=== PATIENT | male | born 1965 | race Caucasian/White ===

== ENCOUNTER 2017-01-02 20:05 | Emergency (ER) | payer MEDICAID ==
[2017-01-02 21:00] VITALS: RESP 16
[2017-01-02] MEDS ORDERED: ACETAMINOPHEN 500 MG TAB ONE (21:05)
--- NOTE | 2017-01-02 22:31 | EDPHY ---
H & P Time Seen by Provider: 01/02/17 21:14 HPI/ROS: Chief complaint. High blood pressure HPI. 51-year-old male here from alcohol [facility] with elevated blood pressure. Been drinking heavily. He went to the [facility] last night. He does have a history of hypertension. He earlier was seeing some spots when his blood pressure was quite high. His history of pancreatitis and alcoholism. Denies focal weakness paresthesias. No chest discomfort or trouble breathing. ROS Constitutional. no fever/chills, no weakness Eyes. Seeing spots ENT. no sore throat, no nasal drainage Cardiovascular. no chest pain Respiratory. no shortness of breath, no cough Abdominal. no abdominal pain, no nausea/vomiting, no diarrhea . no problems urinating MS. no calf pain/swelling, no neck/back pain, no joint pain Skin. no rash Lymph. no swollen glands Neuro. no headache, no dizziness, no difficulty walking or with speech Past Medical/Surgical History: Alcoholism, hypertension, pancreatitis Social History: Single, daily smoker, no alcohol for 24 hours Smoking Status: Heavy smoker Physical Exam: General Appearance: Alert well-developed male mild distress initial blood pressure 182/118 Eyes: Pupils equal and round no pallor or injection. ENT, Mouth: Mucous membranes are moist. Respiratory: There are no retractions, lungs are clear to auscultation. Cardiovascular: Regular rate and rhythm. Gastrointestinal: Abdomen is soft and nontender, no masses, bowel sounds normal. Neurological: Awake and alert, sensory and motor exams grossly normal. Skin: Warm and dry, no rashes. Musculoskeletal: Neck is supple nontender. Extremities symmetrical, full range of motion. Psychiatric: Patient is oriented X 3, there is no agitation. Constitutional: Initial Vital Signs Temperature (C) 37.4 C 01/02/17 20:08 Heart Rate 93 01/02/17 20:08 Respiratory Rate 18 01/02/17 20:08 Blood Pressure 182/118 H 01/02/17 20:08 O2 Sat (%) 95 01/02/17 20:08 O2 Delivery Mode Room Air Allergies/Adverse Reactions: No Known Allergies Allergy (Verified 01/02/17 20:10) Home Medications: Medication Instructions Recorded Acetaminophen [Tylenol 325mg (*)] 650 mg PO Q6 PRN #0 tab 01/15/16 Folic Acid [Folic Acid 1 MG (*)] 1 mg PO DAILY #0 tab 01/15/16 Lipase/Protease/Amylase [Pancreaze 1 cap PO AC #30 cap 01/15/16 16.8] Metoprolol Succinate Xr [Toprol Xl 50 mg PO DAILY #30 tab 01/15/16 50 mg (*)] Multivitamins [Multivitamin (*)] 1 each PO DAILY #0 tab 01/15/16 Nicotine [Nicoderm Cq 21 mg (*)] 21 mg TD DAILY PRN #0 patch 01/15/16 PARoxetine HCL [Paxil 20mg (*)] 20 mg PO DAILY #0 tab 01/15/16 Pantoprazole Sodium [Protonix] 40 mg PO DAILY #20 tab 01/15/16 Sucralfate [Carafate 1gm/10ml Oral 1 gm PO ACHS #60 ml 01/15/16 Liquid (*)] Thiamine HCl [Vitamin B-1] 100 mg PO DAILY #0 tab 01/15/16 amLODIPine BESYLATE [Norvasc 10 mg 10 mg PO DAILY #30 tab 01/15/16 (*)] Medical Decision Making Procedures: Norvasc and Ativan by mouth. ED Course/Re-evaluation: Repeat blood pressure 153/104 Re-evaluation at 11:25 p.m.. Blood pressure 142/105. Patient has no symptoms. Differential Diagnosis: I considered hypertensive urgency and crisis. I also considered alcohol withdrawal as a cause of his elevated blood pressure. Patient has known high blood pressure - Data Points Medications Given: Discontinued Medications Amlodipine Besylate (Norvasc) 10 mg PO EDNOW ONE Stop: 01/02/17 22:38 Last Admin: 01/02/17 23:01 Dose: 10 mg Lorazepam (Ativan) 1 mg PO EDNOW ONE Stop: 01/02/17 22:38 Last Admin: 01/02/17 23:00 Dose: 1 mg Departure - Departure Disposition: Home, Routine, Self-Care Clinical Impression: Hypertension Qualifiers: Hypertension type: essential hypertension Qualified Code(s): I10 - Essential ( primary) hypertension Condition: Good Instructions: Hypertension (ED) Additional Instructions: Continue regular medications as prescribed. Return for worsening symptoms. Re- evaluation by your regular physician in the next week for blood pressure evaluation possible change of medication Referrals: NONE *PRIMARY CARE P,. [Primary Care Provider] - As per Instructions
[2017-01-02] MEDS ORDERED: LORazepam 1 MG TAB PO ONE (22:37)
[2017-01-02] MEDS ORDERED: amLODIPine BESYLATE 5 MG TAB ONE (23:00)
[2017-01-02 23:29] VITALS: BP 143/103; PULSE 75; TEMP 98.1; O2SAT 97
== END 2017-01-02 23:36 | disposition home or self-care (01) ==
DX: I10 Essential (primary) hypertension (principal); F17.200 Nicotine dependence, unspecified, uncomplicated

== ENCOUNTER 2017-07-23 19:50 | Emergency (ER) | payer MEDICAID ==
[2017-07-23 19:54] VITALS: RESP 18
--- NOTE | 2017-07-23 20:08 | EDPHY ---
H & P Time Seen by Provider: 07/23/17 19:50 HPI/ROS: CHIEF COMPLAINT: Fall, back pain HISTORY OF PRESENT ILLNESS: Patient is a 52-year-old male with a history of alcohol abuse who presents emergency department after having a slip and fall on the ice. He fell backwards striking the back of his head and back on the ground. He complains of mild headache. He has back pain from his cervical spine through his lumbar spine. It is worse with movement. He denies any weakness or numbness. Patient is unsure if he lost consciousness during this fall. No nausea or vomiting. No visual change. REVIEW OF SYSTEMS: My complete review of systems is negative except as mentioned in the HPI. Past Medical/Surgical History: Includes alcohol abuse Smoking Status: Heavy smoker Physical Exam: Vitals noted GENERAL: Well-appearing, in no acute distress, alert. HEAD: No evidence of trauma. EYES: PERRLA, EOMI, normal to inspection. ENT: Airway intact, no oral injury, poor dentition, no malocclusion, no hemotympanum, normal external examination. NECK: The trachea is midline. There is no crepitus. RESPIRATORY: Clear to auscultation bilaterally, no rales, rhonchi or wheezing. There is no crepitus or palpable rib fractures. CVS: Regular rate and rhythm, no rubs, murmurs, or gallops. ABDOMEN: Soft, nontender, nondistended, normal bowel sounds, no bruising or abrasions. Pelvis: Stable. No tenderness palpation. Hips full range of motion. BACK: Normal to inspection, diffuse spinal tenderness from his neck to his lumbar spine, no spinal step off, no notable bruising or abrasions. SKIN: Normal color, warm, dry. No pallor or diaphoresis. EXTREMITIES: Right upper extremity: Atraumatic. No visible signs of trauma. No tenderness palpation. Neurovascular intact distally. Left upper extremity: Atraumatic. No visible signs of trauma. No tenderness palpation. Neurovascular intact distally. Right lower extremity: Atraumatic. No visible signs of trauma. No tenderness palpation. Neurovascular intact distally. Left lower extremity: Atraumatic. No visible signs of trauma. No tenderness palpation. Neurovascular intact distally. NEURO/PSYCH: Alert and oriented x 3, GCS 15, normal mood and affect, normal motor sensory exam. Constitutional: Initial Vital Signs Temperature (C) 36.9 C 07/23/17 19:52 Heart Rate 105 H 07/23/17 19:52 Respiratory Rate 18 07/23/17 19:52 Blood Pressure 135/103 H 07/23/17 19:52 O2 Sat (%) 92 07/23/17 19:52 O2 Delivery Mode Room Air Allergies/Adverse Reactions: No Known Allergies Allergy (Verified 01/02/17 20:10) Home Medications: Medication Instructions Recorded Acetaminophen [Tylenol 325mg (*)] 650 mg PO Q6 PRN #0 tab 01/15/16 Folic Acid [Folic Acid 1 MG (*)] 1 mg PO DAILY #0 tab 01/15/16 Lipase 16,800/Amylase/Protease 1 cap PO AC #30 cap 01/15/16 [Pancreaze 16.8] Metoprolol Succinate Xr [Toprol Xl 50 mg PO DAILY #30 tab 01/15/16 50 mg (*)] Multivitamins [Multivitamin (*)] 1 each PO DAILY #0 tab 01/15/16 Nicotine [Nicoderm Cq 21 mg (*)] 21 mg TD DAILY PRN #0 patch 01/15/16 PARoxetine HCL [Paxil 20mg (*)] 20 mg PO DAILY #0 tab 01/15/16 Pantoprazole Sodium [Protonix] 40 mg PO DAILY #20 tab 01/15/16 Sucralfate [Carafate 1gm/10ml Oral 1 gm PO ACHS #60 ml 01/15/16 Liquid (*)] Thiamine HCl [Vitamin B-1] 100 mg PO DAILY #0 tab 01/15/16 amLODIPine BESYLATE [Norvasc 10 mg 10 mg PO DAILY #30 tab 01/15/16 (*)] Medical Decision Making - Diagnostics Imaging Results: Imaging Impressions Cervical Spine CT 07/23/17 20:01 Impression: 1. No significant intracranial abnormality seen. 2. No acute abnormality seen about the cervical spine. 3. Mastoid sinus disease suspected bilaterally left side worse than right with possible mild otitis media and the left. If symptoms worsen, additional imaging may be necessary. Findings discussed with Loyda De Anda M.D. at 20:50 hour, 07/23/2017. Head CT 07/23/17 20:01 Impression: 1. No significant intracranial abnormality seen. 2. No acute abnormality seen about the cervical spine. 3. Mastoid sinus disease suspected bilaterally left side worse than right with possible mild otitis media and the left. If symptoms worsen, additional imaging may be necessary. Findings discussed with Loyda De Anda M.D. at 20:50 hour, 07/23/2017. Thoracic Spine CT 07/23/17 20:01 Impression: 1. Relatively normal CT of the thoracic spine. Findings discussed with Loyda De Anda M.D. at 20:59 hour, 07/23/2017. ED Course/Re-evaluation: I met EMS on arrival in took report from the coastal tug mate. In the emergency department I discussed possible etiologies with the patient. I answered all his questions. CT of the head and C-spine: Please refer the dictated report by Dr. Bruno Fitzgerald. No acute disease noted. 2100: CT of thoracic and lumbar spine: Please refer the dictated report by Dr. Bruno Fitzgerald. No acute disease noted. I discussed the results with the patient. I answered all his questions. The patient denies any numbness or tingling. No focal deficits. He was given warnings prior to leaving. He will return with worsening symptoms. Differential Diagnosis: My differential includes but is not limited to alcohol intoxication, cervical strain, spinal fracture, spinal dislocation, disc herniation, contusion Departure - Departure Disposition: Home, Routine, Self-Care Clinical Impression: Back contusion Qualifiers: Encounter type: initial encounter Laterality: unspecified laterality Qualified Code(s): S20.229A - Contusion of unspecified back wall of thorax, initial encounter Cervical strain, acute Qualifiers: Encounter type: initial encounter Qualified Code(s): S16.1XXA - Strain of muscle, fascia and tendon at neck level, initial encounter Head injury Qualifiers: Encounter type: initial encounter Qualified Code(s): S09.90XA - Unspecified injury of head, initial encounter Alcohol intoxication Qualifiers: Complication of substance-induced condition: uncomplicated Qualified Code(s): F10.920 - Alcohol use, unspecified with intoxication, uncomplicated Condition: Good Instructions: Alcohol Intoxication (ED), Head Injury (ED) Additional Instructions: Return with increasing headache, neck pain, back pain, weakness, numbness or any other concerns. Referrals: [facility],. [Clinic] - 5-7 days, if not improved
[2017-07-23 21:12] VITALS: BP 133/96; PULSE 95; TEMP 97.9; O2SAT 94
== END 2017-07-23 21:11 | disposition home or self-care (01) ==
LOC: EDUNIT#
DX: S09.90XA Unspecified injury of head, initial encounter (principal); S20.229A Contusion of unspecified back wall of thorax, initial encounter; S16.1XXA Strain of muscle, fascia and tendon at neck level, initial encounter; F10.920 Alcohol use, unspecified with intoxication, uncomplicated; F17.200 Nicotine dependence, unspecified, uncomplicated; W01.198A Fall on same level from slipping, tripping and stumbling with subsequent striking against other object, initial encounter
CPT/HCPCS: L0120